=== PATIENT | male | born 1940 | race Caucasian/White ===

== ENCOUNTER 2020-10-16 14:45 | Observation (INO) ==
[2020-10-16 15:30] LABS: ABS Lymphocytes 0.5 10^3/ul (1.0-4.8); ABS Monocytes 0.7 10^3/ul (0-0.8); ABS Neutrophils 2.8 10^3/ul (1.5-7.7); Eosinophil % 0.1 %; Hematocrit 42 % (42-52); Hemoglobin 14.2 g/dL (14.0-18.0); Lymphocyte % 12.6 %; Mean Corpuscular HGB Conc 34 g/dL (31-36); Mean Corpuscular Hemoglobin 34 pg (27-31); Mean Corpuscular Volume 99 fL (80-94); Mean Platelet Volume 7.3 fL (7.4-10.4); Nucleated Red Blood Cells % 0.2; Platelet Count 118 10^3/uL (150-450); Red Blood Count 4.22 10^6 /uL (4.18-5.48); Red Cell Distribution Width 13 % (10-15)
[2020-10-16 15:38] LABS: INR 1.23 (0.86-1.15)
[2020-10-16 15:51] LABS: ALT 37 U/L (7-52); AST 37 U/L (13-39); Albumin 4.4 g/dL (3.2-5.2); Albumin/Globulin Ratio 2.2 (1-3); Alkaline Phosphatase 37 U/L (35-149); Anion Gap 9 mmol/L (2-11); Blood Urea Nitrogen 16 mg/dL (6-24); CO2 Carbon Dioxide 27 mmol/L (22-32); Calcium 9.1 mg/dL (8.6-10.3); Chloride 101 mmol/L (101-111); EGFR Non-African American 71.1 (>60); Glucose 112 mg/dL (70-100); Potassium 3.7 mmol/L (3.5-5.0); Sodium 137 mmol/L (135-145); Total Protein 6.4 g/dL (6.4-8.9)
[2020-10-16 16:01] LABS: Troponin I 0.03 ng/mL (<0.03)
[2020-10-16 16:31] LABS: TSH Ultra Thyroid Stim Horm 1.48 mcIU/mL (0.34-5.60)
[2020-10-16 18:24] LABS: Troponin I 0.04 ng/mL (<0.03)
[2020-10-16] MEDS ORDERED: Ondansetron 4 mg VIAL 2 MG/ML 2 ml VIAL IV PRN (21:18)
[2020-10-16 22:10] LABS: Troponin I 0.05 ng/mL (<0.03)
[2020-10-17] MEDS: Witch Hazel PAD JAR TOPICAL SCH ×2 (01:19→07:53)
[2020-10-17 02:13] LABS: Troponin I 0.05 ng/mL (<0.03)
[2020-10-17 07:37] LABS: Hematocrit 39 % (42-52); Hemoglobin 13.4 g/dL (14.0-18.0); Mean Corpuscular HGB Conc 35 g/dL (31-36); Mean Corpuscular Hemoglobin 34 pg (27-31); Mean Corpuscular Volume 98 fL (80-94); Red Blood Count 3.94 10^6 /uL (4.18-5.48); Red Cell Distribution Width 13 % (10-15); White Blood Count 3.3 10^3/uL (3.5-10.8)
[2020-10-17 07:50] LABS: Anion Gap 6 mmol/L (2-11); Blood Urea Nitrogen 16 mg/dL (6-24); CO2 Carbon Dioxide 30 mmol/L (22-32); Calcium 8.5 mg/dL (8.6-10.3); Chloride 103 mmol/L (101-111); EGFR African American 95.8 (>60); EGFR Non-African American 79.2 (>60); Glucose 103 mg/dL (70-100); Potassium 3.6 mmol/L (3.5-5.0); Sodium 139 mmol/L (135-145)
[2020-10-17 08:06] LABS: Troponin I 0.04 ng/mL (<0.03)
[2020-10-17 08:14] LABS: ABS Lymphocytes 0.5 10^3/ul (1.0-4.8); ABS Monocytes 0.5 10^3/ul (0-0.8); ABS Neutrophils 2.2 10^3/ul (1.5-7.7); Mean Platelet Volume 7.3 fL (7.4-10.4); Nucleated Red Blood Cells % 0.1; Platelet Count 98 10^3/uL (150-450)
[2020-10-17] MEDS ORDERED: Cholecalciferol (VIT D3) 1,000 unit TAB PO SCH (09:00)
[2020-10-17] MEDS ORDERED: Dibucaine 1% OINT 28.35 GM TUBE PR PRN (13:36)
[2020-10-17 15:29] VITALS: BP 124/63
== END 2020-10-17 15:52 | disposition home or self-care (01) ==
LOC: MEDTELE 14:45 → ED 14:45
PROVIDERS: ADMIT Nurse Practitioner Family; ATTEND Hospitalist